=== PATIENT | male | born 1985 | race Caucasian/White ===

== ENCOUNTER 2025-04-13 12:00 | Emergency (ER) | payer OTHER, SELFPAY ==
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
[2025-04-13 12:15] VITALS: BP 149/83; PULSE 72; RESP 8; TEMP 36.6; O2SAT 98; BMI 27.9
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
[2025-04-13 15:05] VITALS: BP 149/83; PULSE 72; RESP 8; TEMP 36.6; O2SAT 98
== END 2025-04-13 15:06 | disposition home or self-care (01) ==
PROVIDERS: Emergency Provider Emergency Medicine
DX: S06.0X0A Concussion without loss of consciousness, initial encounter (principal); S13.4XXA Sprain of ligaments of cervical spine, initial encounter; S29.012A Strain of muscle and tendon of back wall of thorax, initial encounter; V43.52XA Car driver injured in collision with other type car in traffic accident, initial encounter; Y93.89 Activity, other specified; Y92.488 Other paved roadways as the place of occurrence of the external cause; Y99.8 Other external cause status; Z87.820 Personal history of traumatic brain injury; Z79.899 Other long term (current) drug therapy
CPT/HCPCS: 70450; 71101; 72072; 72125; 99282

== ENCOUNTER → 2025-04-13 12:18 | Outpatient (BNV) | payer SELFPAY | PROVIDERS: Emergency Provider Emergency Medicine; Visit Provider Radiology Diagnostic Radiology | DX: M54.2 Cervicalgia (principal); R51.9 Headache, unspecified; R11.0 Nausea; R07.89 Other chest pain; M54.6 Pain in thoracic spine; V49.40XA Driver injured in collision with unspecified motor vehicles in traffic accident, initial encounter | CPT/HCPCS: 70450; 71101; 72072; 72125 ==

== ENCOUNTER 2025-04-19 14:27 | Outpatient (AMB) | payer OTHER, SELFPAY ==
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
[2025-04-19 14:33] VITALS: BP 129/70; PULSE 70; TEMP 35.9; O2SAT 97; BMI 27.6
== END 2025-04-19 15:20 | disposition home or self-care (01) ==
PROVIDERS: PCP Physician Assistant Medical; Visit Provider Physician Assistant Medical
DX: S06.0X0A Concussion without loss of consciousness, initial encounter (principal); M54.30 Sciatica, unspecified side; G56.00 Carpal tunnel syndrome, unspecified upper limb; Z23 Encounter for immunization

== ENCOUNTER → 2025-04-19 14:27 | Outpatient (BNVA) | payer OTHER, SELFPAY | PROVIDERS: Visit Provider Physician Assistant Medical | DX: S06.0X0A Concussion without loss of consciousness, initial encounter (principal); M54.32 Sciatica, left side; R20.0 Anesthesia of skin; M54.2 Cervicalgia; V89.2XXA Person injured in unspecified motor-vehicle accident, traffic, initial encounter; Y93.9 Activity, unspecified; Y92.9 Unspecified place or not applicable; Y99.9 Unspecified external cause status; Z28.21 Immunization not carried out because of patient refusal; Z87.891 Personal history of nicotine dependence | CPT/HCPCS: 90471; 96127 ==

== ENCOUNTER 2025-05-12 14:13 | Outpatient (AMB) | payer OTHER, SELFPAY ==
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
[2025-05-12 14:14] VITALS: BP 132/60; PULSE 66; RESP 16; TEMP 36.6; O2SAT 96; BMI 29.1
== END 2025-05-12 14:48 | disposition home or self-care (01) ==
LOC: HO.HMCSH 14:13
PROVIDERS: PCP Physician Assistant Medical; Visit Provider Physician Assistant Medical
DX: M54.9 Dorsalgia, unspecified (principal); V89.2XXA Person injured in unspecified motor-vehicle accident, traffic, initial encounter; M25.512 Pain in left shoulder; M54.2 Cervicalgia

== ENCOUNTER → 2025-05-12 14:13 | Outpatient (BNVA) | payer OTHER, SELFPAY | PROVIDERS: PCP Physician Assistant Medical; Visit Provider Physician Assistant Medical | DX: M25.512 Pain in left shoulder (principal); M54.50 Low back pain, unspecified; M54.2 Cervicalgia; Z79.899 Other long term (current) drug therapy; Z87.828 Personal history of other (healed) physical injury and trauma | CPT/HCPCS: 96127 ==